=== PATIENT | female | born 1955 | race Hispanic/Latino ===

== ENCOUNTER 2016-07-26 08:36 | Outpatient (CLI) | payer BC ==
--- NOTE | 2016-07-26 12:54 | Mammography Report ---
STEREOTACTIC VACUUM ASSISTED BIOPSY WITH CLIP PLACEMENT LEFT BREAST: 07/26/16 08:36:00 CLINICAL: Suspicious calcifications. COMPARISON:05/24/16 mammogram from [place], [place] FINDINGS: Consent for the procedure was obtained. Scattered retroareolar low density fine calcifications are identified on the outside mammogram. A group was targeted at 12 o'clock with stereotactic guidance. The skin was prepped with Betadine and anesthetized with 1% lidocaine. 2% lidocaine with epinephrine was injected for deeper anesthesia. 8 gauge Mammotome biopsy was performed from a approach through a small dermatotomy. Prefire and post-fire images demonstrated satisfactory positioning of the probe. Samples were obtained around the clock face. A specimen radiograph confirmed satisfactory sampling with removal of eligibility services representative calcifications. A clip was deployed at the biopsy site and the placement was confirmed with a radiograph. The probe was removed and hemostasis was achieved with mild pressure. A sterile dressing was applied. The patient tolerated the procedure well and there were no apparent complications. A tWo view mammogram demonstrated concordant position of the biopsy clip. IMPRESSION: Uncomplicated stereotactic biopsy with clip placement left breast.The group of calcifications that was targeted appears to correlate with the outside mammogram and they appear to be the most suspicious calcifications. Additional retroareolar calcifications were not removed and should be followed with mammograms.
--- NOTE | 2016-07-26 12:55 | Mammography Report ---
LEFT DIGITAL DIAGNOSTIC MAMMOGRAM: 07/26/16 08:36:00 CLINICAL: For clip placement immediately status post stereotactic biopsy. COMPARISON:[facility] 05/24/16 mammogram. FINDINGS: A biopsy clip is now identified at 12 o'clock and correlates with the group of calcifications that were described to be at 1 o'clock on the previous mammogram. IMPRESSION: Concordant clip placement status post stereotactic biopsy. BI-RADS CATEGORY: 4 -- Suspicious Pathology pending.
== END 2016-07-26 08:37 | disposition home or self-care (01) ==
LOC: SPVWC 08:36
PROVIDERS: ATTEND Surgery
DX: R92.1 Mammographic calcification found on diagnostic imaging of breast (principal)
CPT/HCPCS: 19081; 88305; A4648; G0206